=== PATIENT | female | born 1950 | race Caucasian/White ===

== ENCOUNTER 2018-09-22 09:22 | Day surgery (SDC) | payer MEDICARE, MEDICAID ==
[~2018-09-22] VITALS: Ht 162.6 cm; Wt 91.4 kg
[~2018-09-22 09:22] MED LIST: AMLO-147 PO; ASPI-1046 PO; ATOR20TA38 PO; CALCIUM PO; FISH OIL PO; MVI PO; PROPOFOL 200 MG INJ ONE
--- NOTE | 2018-09-22 10:05 | PREAC ---
Date/Time of Note Date/Time of Note DATE: 09/22/18 TIME: 10:03 Anesthesia Eval and Record Evaluation Time Pre-Procedure Interview DATE: 09/22/18 TIME: 10:03 Age 68 Sex female NPO: 8 hrs Preoperative diagnosis + occult Planned procedure colonoscopy Past Medical History Past Medical History: Includes Cardio: HTN, Dyslipidemia, Other (HX chest pain, 2014 stress test negative, normal EF and LV function) GI: Obesity Surgery & Anesthesia Issues No known issue Meds Anticoagulation: Yes Beta Christofer within 24 hr: No Reason Beta Christofer not given: Pt. not on B-Christofer Reported Medications [Mvi] No Conflict Check, PO 12/19/13 [Calcium] No Conflict Check, PO 12/19/13 [Fish Oil] No Conflict Check, PO 12/19/13 Aspirin* (Aspirin* (EC)) 81 Mg Tablet.dr, 81 MG PO DAILY, TAB 12/19/13 Atorvastatin Calcium* (Atorvastatin Calcium*) 20 Mg Tablet, 20 MG PO DAILY, TAB 12/19/13 Amlodipine Besylate* (Amlodipine Besylate*) 10 Mg Tablet, 10 MG PO DAILY, TAB 12/19/13 Meds reviewed: Yes Allergies Coded Allergies: Sulfa (Sulfonamide Antibiotics) (Unverified Allergy, Unknown, 12/19/13) Allergies Reviewed: Yes Labs/Studies Labs Reviewed: Reviewed by anesthesiologist test: N/A Pre-procedure Exam Airway: Adequate mouth opening, Adequate thyromental dist Mallampati: Mallampati II Teeth: Normal Lung: Normal Heart: Normal ASA Physical Status ASA physical status: 2 Emergency: None Planned Anesthetic General/MAC: MAC, TIVA Planned Pain Management Parenteral pain med Pre-operative Attestations Prior to commencing anesthesia and surgery, the patient was re-evaluated, there was verification of: *The patient's identity *The results of appropriate recent lab work and preoperative vital signs *The above evaluation not changing prior to induction *Anesthetic plan, risk benefits, alternative and complications discussed with patient/family; questions answered; patient/family understands, accepts and wishes to proceed. KATHLEEN VEGA Sep 22, 2018 10:05
[2018-09-22] MEDS ORDERED: PROPOFOL 20 ML ONE (10:06)
[2018-09-22] MEDS ORDERED: VITAMIN D3 PO (10:09)
[2018-09-22] MEDS ORDERED: OMEPRAZOLE PO (10:09)
[2018-09-22 10:11] VITALS: Ht 162.6 cm; Wt 91.4 kg
[2018-09-22 10:23] VITALS: BP 149/72; PULSE 82; RESP 18
[2018-09-22] MEDS ORDERED: ONDANSETRON 4 MG INJ IV PRN (10:30)
[2018-09-22 11:21] VITALS: BP 106/61; PULSE 70; RESP 14
--- NOTE | 2018-09-22 13:05 | PAC ---
Date/Time of Note Date/Time of Note DATE: 09/22/18 TIME: 12:59 Post-Anesthesia Notes Post-Anesthesia Note Last documented vital signs HR 75 BP 142/68 RR 20 Temp 97.5 Spo2 99% Vital Signs Date Temp Pulse Resp B/P (MAP) Pulse Ox O2 O2 Flow FiO2 Time Delivery Rate 09/22/18 70 14 106/61 99 Room Air 11:21 (76) 09/22/18 97.7 10:23 Activity: WNL Respiratory function: WNL Cardiovascular function: WNL Mental status: Baseline Pain reasonably controlled: Yes Hydration appropriate: Yes Nausea/Vomiting absent: Yes KATHLEEN VEGA Sep 22, 2018 13:05
== END 2018-09-22 11:42 | disposition home or self-care (01) ==
LOC: GIL 09:22
PROVIDERS: ATTEND Internal Medicine Gastroenterology
DX: R19.5 Other fecal abnormalities (principal); D12.2 Benign neoplasm of ascending colon; K64.8 Other hemorrhoids; I10 Essential (primary) hypertension; E78.5 Hyperlipidemia, unspecified; E66.9 Obesity, unspecified; Z68.34 Body mass index [BMI] 34.0-34.9, adult
CPT/HCPCS: 88305